=== PATIENT | male | born 1930 | race Two or more races ===

== ENCOUNTER 2017-05-21 18:24 | Inpatient (IN) | payer OTHER ==
[~2017-05-21] VITALS: Ht 177.8 cm; Wt 83.9 kg
--- NOTE | 2017-05-21 18:29 | Emergency Room Report ---
History of Present Illness General Chief Complaint: Multiple Trauma/Fall Source: Patient, EMS (Marshall Lenz M.D.) Present Illness HPI Patient fell. He was trimming branches. He scraped his left arm. He also hit the left side of his forehead. He is complaining of a headache at this time. There is no neck pain. He denies loss of consciousness. The patient is on a blood thinner. He is uncertain when his last tetanus shot was. Pain reported 8 /10, pressure and aching, not radiating. Swelling over L eye. No change in vision. He is on Pradaxa for atrial fibrillation. The patient has prostate problems. No dysuria, hematuria. No fevers, chills, chest pain, palpitations, dyspnea, cough, NVD. He is diabetic and denies polies. (Marshall Lenz M.D.) Allergies: Coded Allergies: No Known Allergies (Unverified , 05/21/17) Patient History Past Medical History: see triage record Social History Narrative Reviewed Nursing Documentation: PMH: Agreed, PSxH: Agreed (Marshall Lenz M.D.) Nursing Documentation-PMH Hx Hypertension: Yes Hx Diabetes: Yes (Marshall Lenz M.D.) Review of Systems All Other Systems: negative except mentioned in HPI (Marshall Lenz M.D.) Physical Exam Vital Signs Date Time Temp Pulse Resp B/P (MAP) Pulse Ox O2 Delivery O2 Flow Rate FiO2 05/21/17 18:13 98.2 67 16 137/67 98 Room Air Sp02 EP Interpretation: reviewed, normal General Appearance: well appearing, no apparent distress, GCS 15 Head: other - hematoma L forehead Eyes: bilateral eye normal inspection, bilateral eye PERRL ENT: moist mucus membranes Neck: full range of motion, supple, no bony tend Respiratory: lungs clear, normal breath sounds Cardiovascular #1: regular rate, rhythm Cardiovascular #2: 2+ radial (R) Gastrointestinal: normal inspection, normal bowel sounds, non tender, no mass, non-distended Musculoskeletal: back normal, gait/station normal, normal range of motion Neurologic: alert, oriented x3, motor strength/tone normal, DTRs symmetric, sensory intact, cerebellar normal, normal gait, speech normal Psychiatric: mood/affect normal Skin: warm/dry, abrasions - L forearm, hematoma - l eyebrow (Marshall Lenz Medical Decision Making Diagnostic Impression: Primary Impression: Multiple injuries due to trauma Additional Impressions: Closed head injury Qualified Codes: S09.90XA - Unspecified injury of head, initial encounter Anticoagulated Hematoma ER Course Patient presents with head trauma after a fall. He's on blood thinners. He denies loss of consciousness. The patient is to evaluate the CAT scan and labs. Also be treated with analgesics. An EKG will be obtained. The patient will be given tetanus. No-focal neuro. Doubt bleed, but needs CT and then observation. Hematoma expanding. Pressure dressing applied. EKG with atrial fibrillation, rate controlled. Labs with renal insufficiency. No dialysis indicated. Still with pain. Morphine ordered. Await CT. If negative will admit for observation. Signed out to Dr. Jernigan. Laboratory Tests Test 05/21/17 18:45 White Blood Count 11.4 K/UL (4.8-10.8) H Red Blood Count 4.13 M/UL (4.70-6.10) L Hemoglobin 13.1 G/DL (14.2-18.0) L Hematocrit 38.2 % (42.0-52.0) L Mean Corpuscular Volume 92 FL (80-99) Mean Corpuscular Hemoglobin 31.7 PG (27.0-31.0) H Mean Corpuscular Hemoglobin Concent 34.2 G/DL (32.0-36.0) Red Cell Distribution Width 12.9 % (11.6-14.8) Platelet Count 202 K/UL (150-450) Mean Platelet Volume 7.4 FL (6.5-10.1) Neutrophils (%) (Auto) 73.4 % (45.0-75.0) Lymphocytes (%) (Auto) 17.5 % (20.0-45.0) L Monocytes (%) (Auto) 7.3 % (1.0-10.0) Eosinophils (%) (Auto) 0.8 % (0.0-3.0) Basophils (%) (Auto) 0.9 % (0.0-2.0) Prothrombin Time 11.1 SEC (9.30-11.50) Prothrombin Time INR 1.1 (0.9-1.1) Sodium Level 133 mEQ/L (135-145) L Potassium Level 4.2 mEQ/L (3.4-4.9) Chloride Level 94 mEQ/L (98-107) L Carbon Dioxide Level 28 mEQ/L (20-30) Anion Gap 11 (5-15) Blood Urea Nitrogen 35 mg/dL (7-23) H Creatinine 2.6 mg/dL (0.7-1.2) H Estimate Glomerular Filtration Rate mL/min (>60) Glucose Level 126 mg/dL (74-106) H Calcium Level 9.1 mg/dL (8.6-10.2) Total Bilirubin 1.1 mg/dL (0.0-1.2) Direct Bilirubin 0.3 mg/dL (0.1-0.3) Aspartate Amino Transferase (AST) 27 U/L (5-40) Alanine Aminotransferase (ALT) 16 U/L (3-41) Alkaline Phosphatase 69 U/L (40-129) Total Protein 6.8 g/dL (6.6-8.7) Albumin 3.6 g/dL (3.5-5.2) Globulin 3.2 g/dL Albumin/Globulin Ratio 1.1 (1.0-2.7) (Marshall Lenz M.D.) ER Course Patient is a 86-year-old male endorsed to me by Dr. Lenz. Patient is status post fall. The patient was reportedly trimming a tree when he fell and injured his left side of his head as well as his extremities. The patient had been sent to outside hospital for CT which showed no evidence of acute hemorrhage or stroke. He takes pradaxa for anticoagulation. Patient was discussed with Dr. Alexandre Lim for inpatient observation due to the patient's history of anticoagulation and recent head trauma. Labs Test 05/21/17 18:45 White Blood Count 11.4 K/UL (4.8-10.8) Red Blood Count 4.13 M/UL (4.70-6.10) Hemoglobin 13.1 G/DL (14.2-18.0) Hematocrit 38.2 % (42.0-52.0) Mean Corpuscular Volume 92 FL (80-99) Mean Corpuscular Hemoglobin 31.7 PG (27.0-31.0) Mean Corpuscular Hemoglobin Concent 34.2 G/DL (32.0-36.0) Red Cell Distribution Width 12.9 % (11.6-14.8) Platelet Count 202 K/UL (150-450) Mean Platelet Volume 7.4 FL (6.5-10.1) Neutrophils (%) (Auto) 73.4 % (45.0-75.0) Lymphocytes (%) (Auto) 17.5 % (20.0-45.0) Monocytes (%) (Auto) 7.3 % (1.0-10.0) Eosinophils (%) (Auto) 0.8 % (0.0-3.0) Basophils (%) (Auto) 0.9 % (0.0-2.0) Prothrombin Time 11.1 SEC (9.30-11.50) Prothromb Time International Ratio 1.1 (0.9-1.1) Sodium Level 133 mEQ/L (135-145) Potassium Level 4.2 mEQ/L (3.4-4.9) Chloride Level 94 mEQ/L (98-107) Carbon Dioxide Level 28 mEQ/L (20-30) Anion Gap 11 (5-15) Blood Urea Nitrogen 35 mg/dL (7-23) Creatinine 2.6 mg/dL (0.7-1.2) Estimat Glomerular Filtration Rate mL/min (>60) Glucose Level 126 mg/dL (74-106) Calcium Level 9.1 mg/dL (8.6-10.2) Total Bilirubin 1.1 mg/dL (0.0-1.2) Direct Bilirubin 0.3 mg/dL (0.1-0.3) Aspartate Amino Transf (AST/SGOT) 27 U/L (5-40) Alanine Aminotransferase (ALT/SGPT) 16 U/L (3-41) Alkaline Phosphatase 69 U/L (40-129) Total Protein 6.8 g/dL (6.6-8.7) Albumin 3.6 g/dL (3.5-5.2) Globulin 3.2 g/dL Albumin/Globulin Ratio 1.1 (1.0-2.7) (Talib Jernigan) EKG Diagnostic Results Rate: normal Rhythm: other - a fib - rate 84 ST Segments: no acute changes (Marshall Lenz M.D.) Rhythm Strip Diag. Results EP Interpretation: yes Rhythm: no PVC's, no ectopy, other - a fib (Marshall Lenz M.D.) Last Vital Signs Date Time Temp Pulse Resp B/P (MAP) Pulse Ox O2 Delivery O2 Flow Rate FiO2 05/22/17 00:48 97.9 78 13 136/69 97 Room Air Status: improved (Marshall Lenz M.D.) Status: unchanged (Talib Jernigan) Disposition: PLACE IN OBSERVATION Condition: Serious Marshall Lenz M.D. May 21, 2017 18:29 Talib Jernigan May 21, 2017 23:52
[2017-05-21 18:30] VITALS: BP 140/78
[2017-05-21] MEDS ORDERED: Neosporin Oint Ud Pkt TOP ONE (18:30)
[2017-05-21] MEDS ORDERED: Tylenol #3 tab (300mg/30mg) PO ONE (18:30)
[2017-05-21] MEDS ORDERED: Tetanus/Diptheria/Pertussis Vaccine 0.5ml Syr IM ONE (18:30)
[2017-05-21] MEDS ORDERED: CARVEDILOL3.125 MG ORAL (18:32)
[2017-05-21] MEDS ORDERED: TAMSULOSIN HCL0.4 MG ORAL (18:32)
[2017-05-21] MEDS ORDERED: LOVASTATIN40 MG ORAL (18:32)
[2017-05-21] MEDS ORDERED: LISINOPRIL20 MG ORAL (18:32)
[2017-05-21] MEDS ORDERED: PRADAXA150 MG ORAL (18:32)
[2017-05-21] MEDS ORDERED: LEVOTHYROXINE50 MCG ORAL (18:32)
[2017-05-21] MEDS ORDERED: JANUMET 50-5001 EACH ORAL (18:32)
[2017-05-21] MEDS ORDERED: METFORMIN HCL1000 M1 ORAL (18:32)
[2017-05-21 19:02] LABS: BASOPHILS % (AUTO) 0.9 % (0.0-2.0); EOSINOPHILS % (AUTO) 0.8 % (0.0-3.0); LYMPHOCYTES % (AUTO) 17.5 % (20.0-45.0); MEAN CORPUSCULAR HEMOGLOBIN 31.7 PG (27.0-31.0); MEAN CORPUSCULAR HGB CONC 34.2 G/DL (32.0-36.0); MEAN CORPUSCULAR VOLUME 92 FL (80-99); MEAN PLATELET VOLUME 7.4 FL (6.5-10.1); MONOCYTES % (AUTO) 7.3 % (1.0-10.0); NEUTROPHILS % (AUTO) 73.4 % (45.0-75.0); PLATELET COUNT 202 K/UL (150-450); RED BLOOD COUNT 4.13 M/UL (4.70-6.10); RED CELL DISTRIBUTION WIDTH 12.9 % (11.6-14.8); WHITE BLOOD COUNT 11.4 K/UL (4.8-10.8)
[2017-05-21 19:34] LABS: ALANINE AMINOTRANSFERASE 16 U/L (3-41); ALBUMIN/GLOBULIN RATIO 1.1 (1.0-2.7); ANION GAP 11 (5-15); ASPARTATE AMINO TRANSFERASE 27 U/L (5-40); CALCIUM 9.1 mg/dL (8.6-10.2); CARBON DIOXIDE 28 mEQ/L (20-30); CHLORIDE 94 mEQ/L (98-107); CREATININE 2.6 mg/dL (0.7-1.2); HEMOLYSIS 5; POTASSIUM 4.2 mEQ/L (3.4-4.9); SODIUM 133 mEQ/L (135-145); TOTAL PROTEIN 6.8 g/dL (6.6-8.7)
[2017-05-21 19:51] LABS: INR 1.1 (0.9-1.1); PROTHROMBIN TIME 11.1 SEC (9.30-11.50)
[2017-05-21 19:52] VITALS: BP 127/67
[2017-05-21 20:04] LABS: BILIRUBIN,DIRECT 0.3 mg/dL (0.1-0.3)
[2017-05-21 22:00] VITALS: BP 135/71
[2017-05-21] MEDS ORDERED: Morphine Sulfate 4mg/ml Inj IVP ONE (22:15)
[2017-05-22] VITALS (8 sets, daily range): BP systolic 113–152; BP diastolic 59–84
[2017-05-22] MEDS ORDERED: Norco 5mg/325mg tab ORAL PRN (09:00)
[2017-05-22] MEDS: Lisinopril 20mg tab ORAL SCH (09:32)
[2017-05-22 10:17] LABS: BASOPHILS % (AUTO) 0.8 % (0.0-2.0); EOSINOPHILS % (AUTO) 1.2 % (0.0-3.0); LYMPHOCYTES % (AUTO) 15.4 % (20.0-45.0); MEAN CORPUSCULAR HEMOGLOBIN 29.7 PG (27.0-31.0); MEAN CORPUSCULAR HGB CONC 32.4 G/DL (32.0-36.0); MEAN CORPUSCULAR VOLUME 92 FL (80-99); MEAN PLATELET VOLUME 7.9 FL (6.5-10.1); MONOCYTES % (AUTO) 5.5 % (1.0-10.0); NEUTROPHILS % (AUTO) 77.2 % (45.0-75.0); PLATELET COUNT 235 K/UL (150-450); RED BLOOD COUNT 4.81 M/UL (4.70-6.10); RED CELL DISTRIBUTION WIDTH 12.9 % (11.6-14.8); WHITE BLOOD COUNT 14.7 K/UL (4.8-10.8)
[2017-05-22 10:37] LABS: ANION GAP 15 (5-15); CALCIUM 9.3 mg/dL (8.6-10.2); CARBON DIOXIDE 26 mEQ/L (20-30); CHLORIDE 98 mEQ/L (98-107); HEMOLYSIS 3; SODIUM 139 mEQ/L (135-145)
[2017-05-22] MEDS: NovoLOG Insulin Flexpen SUBQ SCH ×3 (12:18→21:10)
[2017-05-22 15:08] LABS: APPEARANCE,URINE SLIGHTLY CLOUDY; KETONES,URINE NEGATIVE (NEGATIVE); LEUKOCYTE ESTERASE ,URINE 1+ (NEGATIVE); NITRITE,URINE NEGATIVE (NEGATIVE); PH,URINE 6.5 (4.5-8.0); PROTEIN,URINE NEGATIVE (NEGATIVE); UROBILINOGEN,URINE 4 MG/DL (0.0-1.0)
[2017-05-22 15:17] LABS: BACTERIA,URINE MODERATE /HPF; CALCIUM OXALATE CRYSTALS,UR MODERATE /LPF; ICTOTEST NEGATIVE; SQUAMOUS EPITHELIAL CELL,UR FEW /LPF (NONE/OCC)
--- NOTE | 2017-05-22 19:36 | History & Physical ---
History and Physical History & Physicial [id number] mechanical fall left periorbital swelling ecchymosis scalp hematoma small laceration afib on ac BPH with Dunn dm RI HTN FLAVIO QUAN DO May 22, 2017 19:36
[2017-05-22] MEDS ORDERED: Tamsulosin 0.4mg cap ORAL SCH (21:00)
[2017-05-23 00:06] VITALS: BP 155/71
[2017-05-23 03:57] VITALS: BP 116/72
--- NOTE | 2017-05-23 05:15 | History and Physical Report ---
DATE OF ADMISSION: 05/21/2017 REASON FOR ADMISSION: Fall and head trauma. HISTORY OF PRESENT ILLNESS: The patient is an elderly man who states he was trying to pick an avocado, lost his balance, did not lose consciousness. He fell on his left side of his body as well as his head. He has abrasions of his left arm and has a scalp laceration. He does take a blood thinner for history of atrial fibrillation. He has had no chest pain, nausea, vomiting, or diarrhea. He has periorbital swelling over the left eye, but no vision changes, blurry vision, or bleeding within his conjunctivae or sclerae. PAST MEDICAL HISTORY: Includes BPH with a chronic Dunn. He has atrial fibrillation, on Pradaxa, hypertension, hyperlipidemia and diabetes. SOCIAL HISTORY: Negative for tobacco and drugs. FAMILY HISTORY: Noncontributory. MEDICATIONS: Pre-hospital medications reviewed, reconciled, and documented in electronic medical record by dose, frequency and route. REVIEW OF SYSTEMS: Negative for chest pain, shortness of breath, nausea, vomiting, diarrhea, fever, chills, weight changes, blurry vision, double vision, paresthesia, history of syncope, . He does have a chronic Dunn in. PHYSICAL EXAMINATION: At the time my exam, he is oriented and afebrile. His pulse 71, respirations 20, and blood pressure 113/60. Normocephalic. He has a laceration above the left forehead. He has left periorbital swelling, but his cranial nerves are intact. He has no nystagmus. Ecchymosis is noted of the left eye as well. His oropharynx is moist. Neck is supple. No lymphadenopathy. Lungs are decreased at bases. No wheeze present. Heart is regular rhythm without a murmur. Abdomen is soft and nontender. Positive bowel sounds. Extremities without edema. Mild abrasion is noted in the left side of the arm. No focal or neurologic deficits are noted. Dunn catheter is in place. LABORATORY VALUES: White count of 14.7, hemoglobin 14.3, and platelets are 235,000. Sodium 139, potassium 4.0, chloride 90, bicarbonate 25, BUN 32, and creatinine is 2, which has improved upon his admission. BUN of 35, creatinine 2.6, and glucose is 141. Urinalysis is positive for 1+ leukocyte esterase. ASSESSMENT: 1. Mechanical fall with head trauma. 2. Atrial fibrillation, on Pradaxa. 3. Benign prostatic hypertrophy with chronic Dunn, awaiting transurethral resection of the prostate. 4. Hypothyroidism. 5. Hypertension. 6. Diabetes. PLAN: Plan for the patient, he has been admitted. Of note, he did have a CT scan of his head, which is reported to be negative for bleeding. Local care to the hematoma of his left forehead and scalp. His Janumet has been held due to elevated creatinine and glucose is currently being controlled with sliding-scale insulin. Continue neuro checks. Gentle intravenous fluids. DVT prophylaxis. Resume his pre-hospital medications including his Pradaxa, and if no clinical deterioration, the patient will be discharged in the next 24 hours. Chika Tamayo D.O. DR: JANIYA JOB#: [id number] CC:
[2017-05-23] MEDS: NovoLOG Insulin Flexpen SUBQ SCH ×2 (06:57→11:30)
[2017-05-23 08:00] VITALS: BP 124/68
--- NOTE | 2017-05-23 08:51 | General Progress Note ---
Assessment/Plan Assessment/Plan 1. Mechanical fall with head trauma. 2. Atrial fibrillation, on Pradaxa. 3. Benign prostatic hypertrophy with chronic Dunn, planned TURP 4. Hypothyroidism. 5. Hypertension. 6. Diabetes. wait for PT to see if he is safe at home vs SNF dc planning Subjective Neurologic/Psychiatric: Reports: headache Allergies: Coded Allergies: No Known Allergies (Unverified , 05/21/17) Objective Last 24 Hour Vital Signs Date Time Temp Pulse Resp B/P (MAP) Pulse Ox O2 Delivery O2 Flow Rate FiO2 05/23/17 08:00 97.0 63 21 124/68 98 Room Air 05/23/17 04:19 78 05/23/17 03:57 98.8 58 19 116/72 97 Room Air 05/23/17 00:06 98.2 67 20 155/71 96 Room Air 05/23/17 00:00 84 05/22/17 21:07 63 140/77 05/22/17 20:00 83 05/22/17 19:48 98.7 63 19 140/77 97 Room Air 05/22/17 16:00 70 05/22/17 15:19 97.3 71 20 113/60 99 Room Air 05/22/17 12:00 70 05/22/17 11:34 97.5 84 20 120/59 98 Room Air 05/22/17 09:32 134/77 05/22/17 09:32 76 134/77 Laboratory Tests 05/22/17 09:45: White Blood Count 14.7H, Red Blood Count 4.81, Hemoglobin 14.3, Hematocrit 44.1 , Mean Corpuscular Volume 92, Mean Corpuscular Hemoglobin 29.7, Mean Corpuscular Hemoglobin Concent 32.4, Red Cell Distribution Width 12.9, Platelet Count 235, Mean Platelet Volume 7.9, Neutrophils (%) (Auto) 77.2H, Lymphocytes ( %) (Auto) 15.4L, Monocytes (%) (Auto) 5.5, Eosinophils (%) (Auto) 1.2, Basophils (%) (Auto) 0.8, Sodium Level 139, Potassium Level 4.0, Chloride Level 98, Carbon Dioxide Level 26, Anion Gap 15, Blood Urea Nitrogen 32H, Creatinine 2.0H, Estimat Glomerular Filtration Rate , Glucose Level 141H, Calcium Level 9.3 05/22/17 14:00: Urine Color Armida, Urine Appearance Slightly cloudy, Urine pH 6.5, Urine Specific Harlan 1.010, Urine Protein Negative, Urine Glucose (UA) Negative, Urine Ketones Negative, Urine Occult Blood 2+H, Urine Nitrite Negative, Urine Bilirubin Negative, Urine Ictotest Negative, Urine Urobilinogen 4H, Urine Leukocyte Esterase 1+H, Urine RBC 2-4H, Urine WBC 5-10H, Urine Squamous Epithelial Cells Few, Urine Calcium Oxalate Crystals Moderate, Urine Bacteria ModerateH Height (Feet): 5 Height (Inches): 10.00 Weight (Pounds): 185 General Appearance: no apparent distress Neck: normal alignment, supple Cardiovascular: normal rate Respiratory/Chest: lungs clear Abdomen: non tender Objective facial ecchymoses, abrasion Shaun, leg MANISH Andrade May 23, 2017 08:51
[2017-05-23] MEDS: Lisinopril 20mg tab ORAL SCH (09:43)
[2017-05-23 11:45] VITALS: BP 132/65
[2017-05-23] MEDS ORDERED: Tubing IV Secondary IV ONE (15:46)
[2017-05-23] MEDS ORDERED: Neosporin Oint Ud Pkt TOPIC SCH (18:00)
--- NOTE | 2017-05-24 12:56 | Discharge Summary ---
Discharge Summary Hospital Course Date of Admission May 21, 2017 at 22:59 Date of Discharge May 23, 2017 at 15:47 Admitting Diagnosis HEAD INJURY HPI Antwan Stevens is a 86 year old male who was admitted on May 21, 2017 at 22: 59 for Head Injury Hospital Course dc summary [id number] Discharge Medications Continued Medications: Carvedilol* (Carvedilol*) 3.125 Mg Tablet 3.125 MG ORAL EVERY 12 HOURS, TAB Dabigatran Etexilate Mesylate* (Pradaxa*) 150 Mg Capsule 150 MG ORAL DAILY, CAP Levothyroxine Sodium* (Levothyroxine Sodium*) 50 Mcg Tablet 50 MCG ORAL DAILY, TAB Take in the morning on an empty stomach, at least 30 minutes before food. Lisinopril (Lisinopril*) 20 Mg Tablet 20 MG ORAL DAILY, TAB Lovastatin (Lovastatin) 40 Mg Tablet 40 MG ORAL BEDTIME, #30 TAB 0 Refills Tamsulosin Hcl (Tamsulosin Hcl*) 0.4 Mg Cap.er.24h 0.4 MG ORAL BEDTIME, CAP Discharge Condition Upon Discharge: stable Discharge Disposition Patient was discharged to Home with Home [facility]() Discharge Diagnoses: Discharge Instructions Discharge Instructions Follow Up Orders I have been assigned to complete a D/C Summary on this account. I was not involved in the patient management Valarie Rubio NP (Vanchtein) May 24, 2017 12:56
--- NOTE | 2017-05-25 07:01 | Discharge Summary 2 SIG ---
DATE OF ADMISSION: 05/21/2017 DATE OF DISCHARGE: 05/23/2017 REASON FOR ADMISSION: This is an 86-year-old male with history of atrial fibrillation, BPH, chronic Dunn, hypothyroidism, hypertension, and diabetes, presented to emergency department for evaluation after a fall. The patient fell while trimming branches. He scraped his left arm. He hit the left side of his forehead. He complained of headache. No neck pain. He denied loss of consciousness or blackout. The patient is on blood thinner. He has swelling over left ear and also hematoma on the left lateral forehead. The patient denied change of vision or any blurry vision. The patient is taking Pradaxa for atrial fibrillation. No dysuria. No hematuria. No fever. No chills. No chest pain. No palpitation. No dyspnea. No cough. No nausea or vomiting. No fever. No chills. No chest pain and palpitation. No dyspnea or cough. In the emergency department, the patient was given tetanus shock. The patient neurologically shows no focal deficit. CT of the head ruled out acute bleeding. No acute intracranial pathology. The patient was admitted for further management and for observation. ADMITTING DIAGNOSES: 1. Status post mechanical fall. 2. Closed head trauma. 3. Atrial fibrillation, rate controlled. 4. Benign prostatic hypertrophy. 5. Chronic Dunn catheter. 6. Hypothyroidism. 7. Hypertension. 8. Hematoma, left forehead. 9. Diabetes mellitus. HOSPITAL STAY: The patient admitted. The patient was on fall precaution and pain management provided. The patient was closely observed. Local wound care provided. The patient is waiting for insurance for surgery. Blood pressure and blood sugar management. Blood sugar was managed with sliding scale of insulin since prior the patient had creatinine of 2.7 and Januvia discontinued. TSH stable. Continue current dose of levothyroxine. Continue statin and Pradaxa. Continue beta-mauro and JOSE F-inhibitor. The patient is stable for discharge. DISCHARGE DIAGNOSES: 1. Status post mechanical fall. 2. Closed head trauma. 3. Atrial fibrillation, rate controlled. 4. Benign prostatic hypertrophy. 5. Chronic Dunn. 6. Hypothyroidism. 7. Hypertension. 8. Diabetes. 9. Hematoma, left lateral forehead. DISCHARGE MEDICATIONS: See medication reconciliation list. DISCHARGE INSTRUCTIONS: The patient discharged to home with home health. Of note, the patient was working with physical and occupational therapy before decision was made to transfer home versus fdc. Physical evaluation seen and evaluated the patient and that the patient walked as tolerated. The patient was stable for transfer. Alexandre Lim M.D. I have been assigned to dictate discharge summary on this account and I was not involved in the patient's management. Valarie martmarizol NTuckerPTucker DR: Cate JOB#: [id number] CC:
== END 2017-05-23 15:47 | disposition home health service (06) | DRG 914 ==
LOC: EDBD 18:24 → EMR 18:40 → 2E 22:59 → EDBEDREQSVC 23:50 → EDBEDREQ 05-22 00:05
DX: S09.8XXA Other specified injuries of head, initial encounter (principal); I48.91 Unspecified atrial fibrillation; E11.9 Type 2 diabetes mellitus without complications; S00.83XA Contusion of other part of head, initial encounter; S50.812A Abrasion of left forearm, initial encounter; W19.XXXA Unspecified fall, initial encounter; Z23 Encounter for immunization; Z79.01 Long term (current) use of anticoagulants; N40.0 Benign prostatic hyperplasia without lower urinary tract symptoms; E03.9 Hypothyroidism, unspecified
CPT/HCPCS: 36415; 70450; 80048; 80053; 81001; 82248; 82962; 85025; 85610; 87086; 90471; 90715; 99285; J1815; J2405